=== PATIENT | male | born 2000 | race Caucasian/White ===

== ENCOUNTER 2021-02-18 09:52 | Emergency (ER) | payer OTHER ==
[~2021-02-18] VITALS: Ht 182.9 cm; Wt 82.0 kg
[2021-02-18 10:16] VITALS: BP 123/77
[2021-02-18] MEDS ORDERED: AMOX-424 MT (11:21)
[2021-02-18] MEDS ORDERED: MUPI15CR11 TP (11:21)
== END 2021-02-18 11:39 | disposition home or self-care (01) ==
LOC: ER 09:52
DX: L73.9 Follicular disorder, unspecified (principal)
CPT/HCPCS: 99282

== ENCOUNTER 2021-02-19 22:41 | Emergency (ER) | payer OTHER ==
[~2021-02-19] VITALS: Ht 182.9 cm; Wt 82.0 kg
[~2021-02-19 22:41] MED LIST: AMOX-424 MT; MUPI15CR11 TP
[2021-02-19 23:34] VITALS: BP 112/82
== END 2021-02-20 01:00 | disposition left against medical advice (07) ==
LOC: ER 22:41
DX: Z53.21 Procedure and treatment not carried out due to patient leaving prior to being seen by health care provider (principal)